=== PATIENT | male | born 1955 | race Caucasian/White ===

== ENCOUNTER 2021-05-13 18:37 | Inpatient (IN) | payer OTHER ==
[~2021-05-13] VITALS: Ht 190.5 cm; Wt 101.6 kg
[~2021-05-13 18:37] MED LIST: ALPRAZOLAM ER1 MG PO; DIAZEPAM 10 MG10 M1 PO; DILAUDID8 MG PO; HYDROCODON-ACE1 EAC5 PO; LYRICA 75 MG CA75 MG PO; PREDNISONE 20 M20 MG PO; SUBOXONE 8 MG-1 EAC3 SL
[2021-05-13 18:38] VITALS: BP 126/61
[2021-05-13 20:34] LABS: HEMATOCRIT 33.9 % (42.0-52.0); HEMOGLOBIN 10.5 gm/dL (14.0-18.0); MCH 27.8 pg (26.0-34.0); MCV 89.7 fL (80.0-100.0); RBC 3.77 mil/uL (4.50-6.00); RDW 14.2 % (10.5-14.5); WBC 10.4 thou/uL (4.0-11.0)
[2021-05-13 21:07] LABS: BUN 13 mg/dL (7-18); CALCIUM 8.8 mg/dL (8.5-10.1); CHLORIDE 102 mmol/L (98-107); CREATININE 1.1 mg/dL (0.7-1.3); GLUCOSE 186 mg/dL (74-106); POTASSIUM 4.2 mmol/L (3.5-5.1); SODIUM 144 mmol/L (136-145)
[2021-05-13 21:09] LABS: CO2 > 45 mmol/L (21-32)
[2021-05-13 21:21] LABS: ALBUMIN 3.5 g/dL (3.4-5.0); SGOT 20 U/L (15-37); SGPT 22 U/L (16-63); TOTAL BILIRUBIN 0.2 mg/dL (0.2-1.0); TOTAL PROTEIN 7.6 g/dL (6.4-8.2)
[2021-05-13 21:32] LABS: BE(vivo) 20.9 mmol/L (-2 to +3); HCO3 56.5 mmol/L (22.0-26.0); PO2 110.1 mmHg (80.0-100.0); sO2 95.3 % (92.0-98.0)
[2021-05-13 21:33] LABS: PCO2 176.6 mmHg (35.0-45.0); pH 7.123 (7.360-7.450)
[2021-05-13 22:00] VITALS: BP 145/86
[2021-05-13 23:49] LABS: BE(vivo) 24.5 mmol/L (-2 to +3); HCO3 59.6 mmol/L (22.0-26.0); PO2 68.6 mmHg (80.0-100.0); pH 7.185 (7.360-7.450); sO2 85.6 % (92.0-98.0)
[2021-05-13 23:50] LABS: PCO2 161.6 mmHg (35.0-45.0)
[2021-05-14] VITALS: BP 138/73
--- NOTE | 2021-05-14 00:54 | NUR ---
WATER HAULER ORDERED BICARB FOR PATIENT. WHEN I WENT IN THE ROOM TO ADMINISTER IT, PATIENT STARTED GAGGING. BIPAP MASK REMOVED FROM PATIENT AND BUCKET GIVEN TO PATIENT. PATIENT VOMITED INTO THE BUCKET A FEW TIMES--YELLOW FLUID. ZOFRAN GIVEN AND NO MORE EPISODES NOTED. PATIENT MORE AWAKE NOW AND WATCHING TV AT THIS TIME.
[2021-05-14 01:16] LABS: BE(vivo) 27.1 mmol/L (-2 to +3); HCO3 55.7 mmol/L (22.0-26.0); PCO2 81.4 mmHg (35.0-45.0); pH 7.453 (7.360-7.450); sO2 91.7 % (92.0-98.0)
[2021-05-14 04:00] VITALS: BP 118/61
[2021-05-14 06:34] LABS: HEMATOCRIT 33.3 % (42.0-52.0); HEMOGLOBIN 10.1 gm/dL (14.0-18.0); MCH 27.3 pg (26.0-34.0); MCHC 30.5 g/dL (28.0-37.0); MCV 89.6 fL (80.0-100.0); RBC 3.72 mil/uL (4.50-6.00); RDW 13.8 % (10.5-14.5); WBC 11.2 thou/uL (4.0-11.0)
[2021-05-14 06:57] LABS: CALCIUM 9.2 mg/dL (8.5-10.1); CREATININE 1.2 mg/dL (0.7-1.3); POTASSIUM 3.4 mmol/L (3.5-5.1)
[2021-05-14 08:00] VITALS: BP 147/78
[2021-05-14 10:20] LABS: BE(vivo) 19.3 mmol/L (-2 to +3); HCO3 42.7 mmol/L (22.0-26.0); PCO2 43.5 mmHg (35.0-45.0); PO2 57.3 mmHg (80.0-100.0); sO2 93.7 % (92.0-98.0)
--- NOTE | 2021-05-14 11:30 | EKG ---
[address] [place] [address] ELECTROCARDIOGRAM REPORT Name: KIRA DUMAS Room #: 170-21 ADM IN M.R.#: [id number] Admission: 05/13/21 Attend Phys: Desmond Worley MD Discharge: Date of : 59 Report #: [id number] [facility] ED Test Date: 2021-05-13 Test Time: 19:16:49 Pat Name: KIRA DUMAS Department: Room: 170 Gender: M Novelty Worker: LEIGH GONSALEZ : 1955 Requested By: Victorina Bergman Order Number: [id number] MD: Holger Clifford Measurements Intervals [place] Rate: 113 P: 60 [place]: 166 QRS: 32 QRSD: 95 T: 43 QT: 327 QTc: 449 Interpretive Statements Sinus tachycardia Poor R wave progression Baseline wander in lead(s) V1,V2 Compared to ECG 05/03/2013 10:07:39 Atrial premature complex(es) no longer present Electronically Signed On 05-14-2021 11:30:42 RETAIL TEAM MEMBER by Holger Clifford [email or web address] <ELECTRONICALLY SIGNED> By: Holger Clifford MD, [facility] 05/14/21 1130 15 15 Holger Clifford MD, [facility] /EPI
[2021-05-14 12:00] VITALS: BP 120/69
[2021-05-14 14:30] VITALS: BP 119/83
[2021-05-14 20:05] VITALS: BP 138/80
--- NOTE | 2021-05-15 03:56 | NUR ---
RECEIVED PATIENT AT 1900H.ON BIPAP AT 50% FIO2 GRADUALLY WEANED BY RT ON DUTY DOWN TO 30% FIO2, SATURATING WELL.ASSESSMENT DONE CHARTED.MEDS GIVEN PER JUL.ALL NEEDS ATTENDED.TO CONTINOUSLY MONITOR.
[2021-05-15 04:25] VITALS: BP 129/69
[2021-05-15 04:26] LABS: CREATININE 1.4 mg/dL (0.7-1.3); HEMATOCRIT 33.3 % (42.0-52.0); HEMOGLOBIN 10.3 gm/dL (14.0-18.0); MCH 27.3 pg (26.0-34.0); MCHC 30.9 g/dL (28.0-37.0); MCV 88.5 fL (80.0-100.0); POTASSIUM 3.2 mmol/L (3.5-5.1); RBC 3.77 mil/uL (4.50-6.00); RDW 14.3 % (10.5-14.5); WBC 12.1 thou/uL (4.0-11.0)
[2021-05-15 07:30] VITALS: BP 130/76
[2021-05-15 11:30] VITALS: BP 132/65
[2021-05-15] MEDS ORDERED: POTASSIUM CHLO20 ME2 PO (13:06)
[2021-05-15] MEDS ORDERED: FUROSEMIDE 80 M80 M1 PO (13:06)
[2021-05-15] MEDS ORDERED: XARELTO20 MG PO (13:06)
[2021-05-15] MEDS ORDERED: METOPROLOL SUCC50 MG PO (13:07)
[2021-05-15] MEDS ORDERED: REMERON 30 MG T30 M1 PO (13:07)
[2021-05-15] MEDS ORDERED: TRAZODONE HCL100 MG PO (13:08)
[2021-05-15] MEDS ORDERED: VENTOLIN HFA 1818 GM INH (13:09)
[2021-05-15] MEDS ORDERED: BASAGLAR K100 UNIT/1 SUBQ (13:10)
[2021-05-15 16:00] VITALS: BP 123/73
[2021-05-15 20:15] VITALS: BP 128/65
[2021-05-16 04:09] VITALS: BP 122/73
[2021-05-16 04:24] LABS: HEMOGLOBIN 9.6 gm/dL (14.0-18.0); MCV 87.1 fL (80.0-100.0); RBC 3.57 mil/uL (4.50-6.00); RDW 14.6 % (10.5-14.5); WBC 11.9 thou/uL (4.0-11.0)
[2021-05-16 04:41] LABS: CALCIUM 8.5 mg/dL (8.5-10.1); CREATININE 1.2 mg/dL (0.7-1.3)
[2021-05-16 04:44] LABS: POTASSIUM 2.9 mmol/L (3.5-5.1)
[2021-05-16 07:15] VITALS: BP 125/67
[2021-05-16 12:00] VITALS: BP 118/65
[2021-05-16 16:00] VITALS: BP 126/71
[2021-05-16 19:42] VITALS: BP 125/68
--- NOTE | 2021-05-16 21:02 | NUR ---
UPON INITIAL ASSESSMENT PATIENT OXYGEN SATURATION AT 89-90% ON 14 LITERS NASAL CANNULA. NURSE PRESSED UPON PATIENT THE NEED TO KEEP OXYGEN SATURATIONS >92% AND ATTEMPTED TO PLACE BIPAP ON PATIENT TO WHICH HE REFUSED. PATIENT STATES IT "HURTS MY NOSE TOO MUCH." NURSE HAD RT GIVE PT SCHEDULED BREATHING TX AND KICKED PATIENT UP TO 15 LITERS ON NASAL CANNULA WITH LIMITED IMPROVEMENT OF SATS IN 92-93% RANGE. PATIENT STATES WE CAN PUT HIM ON BIPAP "AROUND 10 O'CLOCK". PATIENT IS FULLY ALERT AND ORIENTED.
[2021-05-17 03:48] VITALS: BP 137/81
[2021-05-17 04:18] LABS: HEMATOCRIT 32.1 % (42.0-52.0); HEMOGLOBIN 10.1 gm/dL (14.0-18.0); MCH 27.4 pg (26.0-34.0); MCHC 31.4 g/dL (28.0-37.0); MCV 87.3 fL (80.0-100.0); RBC 3.68 mil/uL (4.50-6.00); RDW 14.6 % (10.5-14.5); WBC 12.8 thou/uL (4.0-11.0)
[2021-05-17 04:21] LABS: CALCIUM 8.2 mg/dL (8.5-10.1); CREATININE 1.1 mg/dL (0.7-1.3); POTASSIUM 3.6 mmol/L (3.5-5.1)
[2021-05-17 07:40] VITALS: BP 134/69
[2021-05-17 12:40] VITALS: BP 149/73
[2021-05-17 12:53] LABS: BE(vivo) 5.6 mmol/L (-2 to +3); HCO3 35.1 mmol/L (22.0-26.0); PCO2 79.1 mmHg (35.0-45.0); PO2 175.6 mmHg (80.0-100.0); pH 7.265 (7.360-7.450); sO2 98.9 % (92.0-98.0)
[2021-05-17 15:25] LABS: BE(vivo) 9.2 mmol/L (-2 to +3); HCO3 37.8 mmol/L (22.0-26.0); PO2 70.6 mmHg (80.0-100.0); sO2 92.3 % (92.0-98.0)
[2021-05-17 15:30] LABS: PCO2 73.6 mmHg (35.0-45.0); pH 7.329 (7.360-7.450)
--- NOTE | 2021-05-17 15:47 | NUR ---
DURING LUNCH THE PATIENT CHOKED ON A PIECE OF FOOD. I HEARD THE PATIENT CHOKING AND WENT INTO THE ROOM TO ASSESS THE SITUATION. HE WAS HAVING RESPIRATORY ISSUES. OXYGEN SATURATION WAS IN THE LOW 80'S AND DROPING. A COUPLE OF HARD BACK SLAPS WERE GIVEN TO THE PATIENT AND HE WAS ABLE TO COUGH UP THE PIECE OF FOOD, HE WAS ALSO PLACED ON BIPAP. THAT PATIENT HAS AN O2 OF 55% ON THE PULSE OX AND HAD BLUE LIPS BY THE TIME THE BIPAP WAS ABLE TO PLACED. DR WHITE WAS ROUNDING AT TIME OF INCIDENT, DR. ODOM AND DR. GUTIERREZ WAS NOTIFIED. ORDERS RECIEVED AND PLACED.
--- NOTE | 2021-05-17 16:06 | NUR ---
CM DID NOT SEE PT TODAY DUE TO DECREASE IN RESP STATUS. PT NOW ON BIPAP. CM WILL CONTINUE TO FOLLOW FOR DC NEEDS ONCE MEDICALLY STABLE.
[2021-05-17 16:50] VITALS: BP 129/66
[2021-05-17 20:14] VITALS: BP 136/81
[2021-05-18 03:27] LABS: HEMATOCRIT 34.6 % (42.0-52.0); HEMOGLOBIN 10.9 gm/dL (14.0-18.0); MCH 27.9 pg (26.0-34.0); MCHC 31.6 g/dL (28.0-37.0); MCV 88.3 fL (80.0-100.0); RBC 3.91 mil/uL (4.50-6.00); RDW 14.9 % (10.5-14.5); WBC 13.6 thou/uL (4.0-11.0)
[2021-05-18 03:56] LABS: CALCIUM 8.4 mg/dL (8.5-10.1); CREATININE 1.1 mg/dL (0.7-1.3); POTASSIUM 4.2 mmol/L (3.5-5.1)
[2021-05-18 05:00] VITALS: BP 152/95
--- NOTE | 2021-05-18 06:11 | HC ---
[facility] [place] [address] [place] [address] CONSULTATION Name: KIRA DUMAS JR Room #: 204-P ADM IN M.R.#: [id number] Admission: 05/13/21 Attend Phys: Luke Benitez MD Discharge: Date of : 59 Report #: [id number] THIS REPORT FOR: cc: Bradford Arriaza MD, David R. MD Deardorff, Valerie A. MD ~ DATE OF SERVICE: 05/14/2021 ORTHOPEDIC CONSULT NOTE REASON FOR CONSULTATION: Right tib-fib fracture. HISTORY OF PRESENT ILLNESS: The patient is a 65-year-old male with multiple medical issues who fell yesterday while ambulating with his walker. The history is obtained from the patient's medical record due to the patient's sedation. He fell twice yesterday. Reported pain in the right lower extremity, was diagnosed with a right distal tibia and midshaft fibula fracture. He said he was unable to bear weight. REVIEW OF SYSTEMS: GENERAL: Denied loss of consciousness. MUSCULOSKELETAL: See HPI. PAST MEDICAL HISTORY: Significant for COPD, obstructive sleep apnea, suicidal ideation per the chart, chronic back pain, hepatitis, atrial fibrillation. PAST SURGICAL HISTORY: Spinal fusion and liver biopsy. SOCIAL HISTORY: Smokes cigarettes daily. Alcohol use is none. Ambulates with a walker. ALLERGIES: No known drug allergies . REPORTED HOME MEDICATIONS: Include Suboxone and pregabalin as well as prednisone. LABORATORY DATA: Laboratory studies done on 05/14/2021 show white blood cell count 11.2, hemoglobin 10.1, hematocrit 33, platelet count 262. Arterial blood gas shows elevated pCO2. Chemistry is grossly normal. PHYSICAL EXAMINATION: GENERAL: The patient has a CPAP machine on. He is sleepy, will not arouse to stimulation, but is breathing and appears to be resting comfortably. He is a well-developed, well-nourished male in no acute distress. He is lying in a hospital bed. MOST RECENT VITAL SIGNS: Show temperature of 37.8, heart rate 89, respiratory [facility] [address] [place] [address] CONSULTATION Name: KIRA DUMAS Room #: 204-P [facility] IN ..#: [id number] Admission: 05/13/21 Attend Phys: Luke Benitez MD Discharge: Date of : 59 Report #: [id number] rate 18, blood pressure 118/61, pulse oximetry is 94%. EXTREMITIES: Examination of his bilateral upper extremity, again the exam is significantly limited due to the patient's sedation and inability to wake. The skin is clean, dry and intact on both upper extremities. Unable to move them gently without any pain. He has brisk capillary refill. There are no deformities. Right lower extremity, his leg is in a well-padded posterior and sugar tong splint. Unable to wiggle his toes without significant difficulty. He has brisk capillary refill. There is no pain with range of motion of the hip or knee. Left lower extremity, skin is clean, dry and intact. I am able to range his legs gently without pain. RADIOGRAPHS: AP and lateral of the right tib-fib shows a midshaft fibula fracture with a moderate amount of comminution, distal tibia fracture that extends to 2 cm proximal to the joint line. This is a short oblique fracture. Foot x-rays do not show any acute abnormality. IMPRESSION AND PLAN: Right distal tibia and midshaft fibula fracture in a patient with multiple medical issues and difficult to awaken today, most likely due to his hypercapnia. I advised continued ice and elevation. We will discuss with my partner, Dr. Jeffrey Santo who is otolaryngology surgeon this weekend and he will develop a plan. Thank you very much for allowing me to participate in the care of this patient. Sincerely, <ELECTRONICALLY SIGNED> By: Anabel Thomas MD 05/18/21 0611 [id number] 0621 Anabel Thomas MD /nt
[2021-05-18 08:00] VITALS: BP 122/88
[2021-05-18 12:00] VITALS: BP 148/78
[2021-05-18 16:00] VITALS: BP 162/87
--- NOTE | 2021-05-18 17:26 | NUR ---
PT/OT EVALS IN PROGRESS. ANTICIPATED PTS NONSURGICAL FX WILL BE NWB FOR 6-8 WEEKS AND HOPEFULLING ABLE TO CAST HIS LOWER EXT. HERE THROUGHOUT THE DAY. 5N IS FOLLOWING. AWAITING FURTHER INPUT FROM THE TEAM TO DETERMINE IF SNF OR WILL BE BEST OPTION FOR PT. PT CONTINUES ON 50% O2. CM WILL CONTINUE TO FOLLOW.
[2021-05-18 20:15] VITALS: BP 146/80
--- NOTE | 2021-05-18 21:45 | NUR ---
patient refused iv pain meds due to his nausea and throwing up.
[2021-05-19 04:30] VITALS: BP 134/73
[2021-05-19 07:27] VITALS: BP 136/79
[2021-05-19 11:05] VITALS: BP 122/60
[2021-05-19 15:15] VITALS: BP 124/66
[2021-05-19 19:31] VITALS: BP 110/57
--- NOTE | 2021-05-20 03:59 | NUR ---
RECEIVED PATIENT AT 1900H.PATIENT IS ALERT AND ORIENTED X4.ASSESSMENT DONE CHARTED.MEDS GIVEN PER JUL.PAIN MANAGEMENT DONE.ALL NEEDS ATTENDED.TO CONTINOUSLY MONITOR.
[2021-05-20 04:24] VITALS: BP 119/66
[2021-05-20 07:39] VITALS: BP 133/65
[2021-05-20 11:13] VITALS: BP 115/70
--- NOTE | 2021-05-20 11:55 | NUR ---
Nutrition: pt admitted with acute respiratory failure, right tib/fib fracture and ankle fracture. PMH: COPD, hepatitis, back surgery. pt had required bipap but currently on Optiflo. Plan nonoperative approach due to high risk surgical candidate due to O2 needs. BG 200-261. On SSI, glargine. Steroids likely aggravating BG. Pt eating fairly well, 50-100% of meals on Carb Controlled diet. Voiced understanding of diet and stable weights past year although did lose some weight at time of DM dx over a year ago. Alerted pt of alternative menu options. Consider low nutrition risk.
--- NOTE | 2021-05-20 12:37 | EKG ---
[address] [address] ELECTROCARDIOGRAM REPORT Name: KIRA DUMAS Room #: 204-[facility] IN ..#: [id number] Admission: 05/13/21 Attend Phys: Luke Benitez MD Discharge: Date of : 59 Report #: [id number] [facility] Test Date: 2021-05-20 Test Time: 09:36:57 Pat Name: KIRA DUMAS Department: Room: 204 P Gender: M Kiln Firer: LOURDES : 1955 Requested By: Luke Benitez Order Number: [id number] MD: Isaak Rodriguez Measurements Intervals [place] Rate: 120 P: 118 [place]: 162 QRS: 54 QRSD: 96 T: 60 QT: 318 QTc: 450 Interpretive Statements Sinus tachycardia with irregular rate Compared to ECG 05/13/2021 19:16:49 Poor R-wave progression no longer present Electronically Signed On 05-20-2021 12:37:11 COMMUNITY ARTIST by Isaak Rodriguez [email or web address] <ELECTRONICALLY SIGNED> By: Isaak Rodriguez MD, [facility] 05/20/21 1237 5 5 Isaak Rodriguez MD, FACC /EPI
[2021-05-20 12:39] LABS: BASOPHILS 0.1 % (0.0-2.0); HEMATOCRIT 40.3 % (42.0-52.0); HEMOGLOBIN 12.7 gm/dL (14.0-18.0); LYMPHOCYTES 4.5 % (24.0-44.0); MCH 27.6 pg (26.0-34.0); MCHC 31.5 g/dL (28.0-37.0); MCV 87.7 fL (80.0-100.0); MONOCYTES 7.2 % (1.0-8.0); PLATELET COUNT 360 thou/uL (150-400); POLYS 88.2 % (36.0-66.0); RBC 4.59 mil/uL (4.50-6.00); RDW 15.2 % (10.5-14.5); WBC 18.1 thou/uL (4.0-11.0)
[2021-05-20 12:46] LABS: CALCIUM 8.4 mg/dL (8.5-10.1); CREATININE 1.2 mg/dL (0.7-1.3); POTASSIUM 4.1 mmol/L (3.5-5.1)
[2021-05-20 15:03] VITALS: BP 119/79
--- NOTE | 2021-05-20 16:24 | NUR ---
Assumed care of pt this AM. Pt is A&O x4. Received pt on Bipap, but switched to Optiflow @ 45L this AM for day. Pt w/ uncontrolled Afib this AM. Cardiology consult placed per provider & orders carried out. Pt reports pain in RLE 8-10/10 throughout day. Pt reports it has been uncontrolled. Pain medication adjustments made per provider & pt reports better pain control. Fall precautions in place.
--- NOTE | 2021-05-20 16:36 | NUR ---
CM REVIEWED PT CHART. CALLED PTS TO ASSIST WITH DC PLANNING AND REVIEW SNF OPTIONS. UNABLE TO REACH AND LM. CM WILL CONTINUE TO FOLLOW.
[2021-05-20 19:41] VITALS: BP 138/70
[2021-05-21 03:25] LABS: HEMATOCRIT 34.5 % (42.0-52.0); HEMOGLOBIN 11.1 gm/dL (14.0-18.0); MCV 87.5 fL (80.0-100.0); RBC 3.95 mil/uL (4.50-6.00); RDW 14.6 % (10.5-14.5); WBC 17.3 thou/uL (4.0-11.0)
[2021-05-21 04:30] VITALS: BP 117/82
[2021-05-21 04:51] LABS: CALCIUM 7.8 mg/dL (8.5-10.1); CREATININE 1.1 mg/dL (0.7-1.3); POTASSIUM 4.1 mmol/L (3.5-5.1)
--- NOTE | 2021-05-21 04:53 | NUR ---
ASSESSSMENT COMPLETED. PT IS ON THE BIPAP@NOC 6L. LS ARE DIMINISHED, NO S/SX OF DISTRESS. MAIN PROBLEM IS RLE PAIN, ELEVATED ON PILLOW AND ICE APPLIED. SPLINT IN PLACE.NORCO GIVEN FOR PAIN-PLAN FOR CASTING TODAY.AFIB CONTROLLED ON TELEMETRY.AFEBRILE.NO COUGH NOTED. ON CONTINUOUS PULSE OX AND SITTING ON 95%.
[2021-05-21 07:40] VITALS: BP 103/68
--- NOTE | 2021-05-21 09:33 | NUR ---
Assumed care of pt this AM. Pt is A&O x4, on optiflow @ 45L, Afib on the monitor. Pt c/o pain in the RLE, PRN pain medication given as ordered. Plan for echo & possible casting of RLE today? High fall precautions in place. Pt calls appropriately.
--- NOTE | 2021-05-21 10:38 | 2DMMODE ---
[facility] [place] [address] 2 D/M-MODE ECHOCARDIOGRAM Name: ALESIAKIRA MARYLINVALERI Room #: 204-P [facility] IN .#: [id number] Admission: 05/13/21 Attend Phys: Luek Benitez MD Discharge: Date of : 59 Report #: [id number] THIS REPORT FOR: cc: Bradford Arriaza MD, David R. MD Santiago, Patrick MD [facility] ~ APPROVED REPORT Study performed: 05/21/2021 08:55:26 EXAM: Comprehensive 2D, Doppler, and color-flow Echocardiogram Patient Location: In-Patient Room #: 204 Status: routine BSA: 2.30 HR: 71 bpm BP: 117/82 mmHg Rhythm: Atrial Fibrillation Other Information Study Quality: Fair Technically limited study due to body habitus, inability to position patient. Risk Factors: Cardiac Risk Factors: Smoking Indications Hypotension COPD Atrial Fibrillation 2D Dimensions RVDd: 39.36 mm IVSd: 10.70 (7-11mm) LVOT Diam: 20.13 (18-24mm) LVDd: 42.91 mm PWd: 10.91 (7-11mm) Ascending Ao: 33.52 (22-36mm) LVDs: 34.01 (25-40mm) Aortic Root: 30.90 mm Volumes Left Atrial Volume (Systole) Single Plane 4CH: 106.69 mL Single Plane 2CH: 54.59 mL Biplane LA Volume: 88.00 mL LA ESV Index: 38.00 mL/m2 [facility] [address] [place] [address] 2 D/M-MODE ECHOCARDIOGRAM Name: KIRA DUMAS Room #: 204-P [facility] IN ..#: [id number] Admission: 05/13/21 Attend Phys: Luke Benitez MD Discharge: Date of : 59 Report #: [id number] Aortic Valve AoV Peak Suresh.: 1.10 m/s AO Peak Gr.: 5.24 mmHg LVOT Max P.40 mmHg LVOT Max V: 0.92 m/s VERN Vmax: 2.67 cm2 Left Ventricle The left ventricle is normal size. There is normal LV segmental wall motion. There is normal left ventricular wall thickness. Left ventricular systolic function is mildly decreased. LVEF is 40-45%. This study is not technically sufficient to allow evaluation of the LV diastolic function due to atrial fibrillation. Right Ventricle The right ventricle is normal size. The right ventricular systolic function is normal. Atria Left atrium is mildly dilated. The right atrium size is normal. Aortic Valve The aortic valve is not well visualized. No aortic regurgitation is present. There is no aortic valvular stenosis. Mitral Valve The mitral valve is normal in structure. There is no mitral valve regurgitation noted. No evidence of mitral valve stenosis. Tricuspid Valve The tricuspid valve is normal in structure. Unable to assess PA pressure. Pulmonic Valve Pulmonic valve is not well visualized. There is no pulmonic valvular regurgitation. Great Vessels The aortic root is normal in size. IVC is normal in size and collapses >50% with inspiration. Pericardium Trace pericardial effusion. There is no pleural effusion. [facility] [address] [place] [address] 2 D/M-MODE ECHOCARDIOGRAM Name: KIRA DUMAS Room #: 204-P [facility] IN [facility]#: [id number] Admission: 05/13/21 Attend Phys: Luke Benitez MD Discharge: Date of : 59 Report #: [id number] <Conclusion> Technically a difficult study Normal left ventricle size/wall thickness Global hypokinesis ejection fraction 40-45% Normal right ventricle size/function Mild left atrial enlargement Normal aortic/mitral valve structure and function No tricuspid valve insufficiency Trace pericardial effusion Normal aortic root size. <ELECTRONICALLY SIGNED> By: Isaak Rodriguez MD, FACC 05/21/21 1037 1037 1037 Isaak Rodriguez MD, FACC /INF
[2021-05-21 11:15] VITALS: BP 123/57
[2021-05-21 15:07] VITALS: BP 106/71
--- NOTE | 2021-05-21 16:03 | NUR ---
CM PLACED CALL TO PTS JASMIN [phone] AND DAUGHTER ANNIKA [phone] AND CONTINUE UNABLE TO REACH. SNF LIST GIVEN TO PTS AND AWAITING CHOICE FOR DC PLANNING. PER PHYSICIAN PT WILL NOT BE MEDICALLY STABLE TO DISCHARGE FOR A FEW DAYS. CM WILL CONTINUE TO FOLLOW.
[2021-05-21 20:09] VITALS: BP 110/70
--- NOTE | 2021-05-22 03:30 | NUR ---
RECEIVED CARE OF THIS PAITENT AT 1900. PATIENT ALERT AND ORIENTED X4. REMAINS ON BEDREST D/T FX LEG AND FOOT ON THE R LOWERR EXT. O2 PER BIPAP AT HS. R LEG IN CAST UP ON PILLOWS. ACCUCHECK WAS 271, RECEIVED 12 UNITS LISPRO INSULIN. IS AFIB ON TELE. IS NON-WEIGHT BEARINGON R LOWER EXT. C/O PAIN. MED GIVEN. SLEPT MOST OF NIGHT.
[2021-05-22 04:11] VITALS: BP 111/65
[2021-05-22 07:46] VITALS: BP 127/76
[2021-05-22 11:05] VITALS: BP 105/57
[2021-05-22 15:26] VITALS: BP 111/60
--- NOTE | 2021-05-22 16:43 | NUR ---
ASSESSMENT CHARTED - MEDS PER ALEXIS - SHERRY DIET AND FLUIDS. GIVEN HYDRCODONE X 3 DOSED FOR CO'S OF PAIN - PT CALLS FOR PAIN MEDS EVERY 4 HOURS. CAST TO R LEG PT STATES IS LOOSE - HE CAN FEEL HIS BONES CLICKING INSIDE OF IT - DR HEATH PAGED AND INFORMED HE STATED THIS WAS OKAY. PT HAS BEEN RESTING IN BED THIS SHIFT -REMAINS ON THE OPTIFLOW - SHORT OF BREATH WITH MIN EXERTION. ACCUCHECKS CHARTED - COVERED PER SSI. NO CO'S AT THE PRESENT TIME.
[2021-05-22 19:38] VITALS: BP 114/73
[2021-05-23 03:30] VITALS: BP 100/67
[2021-05-23 07:13] VITALS: BP 113/73
[2021-05-23 11:00] VITALS: BP 101/49
[2021-05-23 15:20] VITALS: BP 117/85
--- NOTE | 2021-05-23 18:15 | NUR ---
ASSESSMENT CHARTED - MEDS PER MAR - PT REQUESTING PAIN MEDS EVERY 4 HOURS - CAN BE SLEEPING AND WAKES AND ASKS FOR THEM. SHERRY DIET AND FLUIDS. NO CO'S OF NAUSEA. GIVEN MIRILAX THIS AM FOR NO BM - HAD NO RESULTS WILL REQUEST THAT IT IS REPEATED THIS EVENING. HAS SPENT THE DAY RESTING IN BED. ACCUCHECKS CHARTED - COVERED PER SSI. ANKLE AND LEG XRAY COMPLETED THIS AM. INTO VISIT THIS EVENNING. NO CO'S AT THE PRESENT TIME.
[2021-05-23 19:39] VITALS: BP 106/58
[2021-05-24 03:46] VITALS: BP 121/63
[2021-05-24 07:45] VITALS: BP 118/74
[2021-05-24 09:48] LABS: CALCIUM 7.8 mg/dL (8.5-10.1); CREATININE 1.1 mg/dL (0.7-1.3); POTASSIUM 4.5 mmol/L (3.5-5.1)
[2021-05-24 11:40] VITALS: BP 113/58
--- NOTE | 2021-05-24 15:07 | NUR ---
TOOK OVER CARE OF THIS PATIENT AT O700. PT RESTING IN BED AT THIS TIME. ASSESSMENTS CHARTED; VSS; APPEARS IN NO DISTRESS. PT COMPLAINT OF PAIN IN RLE; ADMIN PRN PAIN MEDICATION. PT DENIES ANY OTHER NEEDS AT THIS TIME. WILL CONTINUE TO MONITOR. FALL PRECAUTIONS IN PLACE, CALL LIGHT WITHIN REACH.
--- NOTE | 2021-05-24 15:41 | NUR ---
CM MET WITH PT THIS DAY. PT REMAINS ON 9L HIGH FLOW O2. PTS BASELINE IS 5L/NC. THERAPY RECOMMENDED SNF ONCE MEDICALLY STABLE TO DC. PT INDICATED HIS FIRST CHOICE FOR SNF SERVICES IS [facility]. REFERRAL SENT. ALSO SENT REFERRAL TO [facility]. AWAITING ACCEPTANCE AT THIS TIME. CM WILL CONTINUE TO FOLLOW.
[2021-05-24 15:55] VITALS: BP 119/76
[2021-05-24 20:09] VITALS: BP 111/61
[2021-05-25 04:28] VITALS: BP 122/77
[2021-05-25 08:00] VITALS: BP 132/72
--- NOTE | 2021-05-25 10:09 | NUR ---
TOOK OVER PATIENT AT 0700; PT RESTING IN BED AT THIS TIME. PT DENIES ANY PAIN AT THIS TIME. PT WEARING 8 L NC VIA HFNC. SPOKE WITH CM REGARDING PATIENT'S CASE; REFERRAL TO FACILITY MADE BUT PATIENT STATES HE WANTS TO GO HOME. PT BECOMES SOA WITH EXERTION. FALL PRECAUTIONS IN PLACE AND CALL LIGHT WITHIN REACH. DENIES ANY OTHER NEEDS AT THIS TIME.
[2021-05-25 11:15] VITALS: BP 122/78
--- NOTE | 2021-05-25 16:07 | NUR ---
KALPESH SPOKE WITH FRANKIE AT [facility]. NO BEDS AVAILABLE AT THIS TIME FOR SNF SERVICES. KALPESH ALSO SPOKE TO [facility], PTS SECOND CHOICE FOR SNF. SPOKE TO BOB. HE REPORTS THEY CAN ALSO ACCEPT AND MAY HAVE A BED AVAILABLE TOMORROW. HE WILL LET THIS CM KNOW AND CM WILL F/U IN AM.
[2021-05-25 16:10] VITALS: BP 128/82
[2021-05-25 19:29] VITALS: BP 146/82
[2021-05-25 20:00] VITALS: BP 114/65
--- NOTE | 2021-05-26 03:40 | NUR ---
RECEIVED PATIENT AT 1900H.ASSESSMENT DONE CHARTED.MEDS GIVEN PER JUL.PAIN MANAGEMENT DONE.ALL NEEDS ATTENDED.TO CONTINOUSLY MONITOR.
[2021-05-26 03:44] VITALS: BP 122/68
[2021-05-26 07:40] VITALS: BP 119/71
[2021-05-26 11:40] VITALS: BP 98/71
--- NOTE | 2021-05-26 14:31 | NUR ---
CM FOLLOWING FOR DC PLANNING. CM SPOKE TO FRANKIE AND UNFORTUNETLY [facility] DOES NOT HAVE A BED AVAILABLE UNTIL MONDAY. CM ALSO SPOKE TO BUTCH WITH [facility]. HE REPORTS PT ACCEPTED ALTHOUGH NO BED AVAILABLE EITHER. HE REPORTS HE WILL KEEP PT ON HIS LIST OF ADMISSIONS HOWEVER, IT DEPENDS OF STAFFING. CM MET WITH PT THIS DAY. HE REPORTS BOB WITH [facility] CAME TO SEE HIM TODAY TO GIVE HIM A BROCHURE OF FACILITY. PT REPORTS HE APPRECIATED THAT AND PREFERS TO GO TO THIS FACILITY HIS FIRST CHOICE. PT REPORTS DISCHARGING HOME MAY NOT BE OPTION PTS WORKS AND IS NOT HOME DURING THE DAY. CM WILL CONTINUE TO FOLLOW FOR DC ONCE PT MEDICALLY STABLE TO DC.
[2021-05-26 15:20] VITALS: BP 127/72
--- NOTE | 2021-05-26 17:36 | NUR ---
PATIENT HAD AN UNEVENTFUL SHIFT. ONLY COMPLAINTS WAS PAIN IN RIGHT LEG SECONDARY TO FRACTURE. DECENT URINE OUTPUT, AND 1 LARGE BOWEL MOVEMENT. PATIENT REMAINED IN BED THROUGHOUT SHIFT ABLE TO TURN SELF. PT HAD A GOOD APPETITE AND CONSUMED THE MAJORITY OF MEALS AND SNACKS THROUGHOUT THE DAY.
[2021-05-26 19:25] VITALS: BP 121/58
[2021-05-27 03:31] VITALS: BP 118/70
--- NOTE | 2021-05-27 04:27 | NUR ---
RECEIEVED PATIENT AT 1900H.ASSESSMENT DONE CHARTED.MEDS GIVEN PER Jul.HAD COMPLAINTS OF RIGHT FOOR AND BACK PAIN, PRN PAIN MEDS GIVEN.ALL NEEDS ATTENDED.TO CONTINOUSLY MONITOR.
[2021-05-27 07:15] VITALS: BP 93/66
[2021-05-27] MEDS ORDERED: CARDIZEM CD120 MG PO (10:26)
[2021-05-27] MEDS ORDERED: PREDNISONE 20 M20 M1 PO (10:26)
[2021-05-27] MEDS ORDERED: IPRAT-ALBUT 0.5-3 ML INH (10:26)
[2021-05-27] MEDS ORDERED: BASAGLAR K100 UNIT/1 SUBQ (10:26)
[2021-05-27] MEDS ORDERED: PROBIOTIC1 EAC1 PO (10:26)
[2021-05-27] MEDS ORDERED: PEPCID20 MG PO (10:26)
[2021-05-27] MEDS ORDERED: NORCO7.5 PO (10:26)
[2021-05-27] MEDS ORDERED: CEFDINIR300 MG PO (10:26)
[2021-05-27] MEDS ORDERED: PULMICORT0.5 MG/21 INH (10:26)
[2021-05-27 10:47] LABS: HEMATOCRIT 38.5 % (42.0-52.0); HEMOGLOBIN 11.7 gm/dL (14.0-18.0); MCH 27.1 pg (26.0-34.0); MCHC 30.5 g/dL (28.0-37.0); RBC 4.32 mil/uL (4.50-6.00); RDW 15.7 % (10.5-14.5); WBC 13.9 thou/uL (4.0-11.0)
[2021-05-27 11:18] LABS: CREATININE 1.2 mg/dL (0.7-1.3); MAGNESIUM 1.9 mg/dL (1.8-2.4); POTASSIUM 3.9 mmol/L (3.5-5.1)
[2021-05-27 11:30] VITALS: BP 113/57
--- NOTE | 2021-05-27 12:47 | NUR ---
Nutrition followup: pt continues on CCU unit, acute respiratory failure/COPD, on Optiflow and right tib/fib/ankle fracture. Nonsurgical approach. Pt continues to eat very well, 75-100% of meals on Carb controlled diet. BG 136-324. BG remains aggravated likely with steroids. On SSI, glargine, lasix. Weight down 4# from admit, likely due to diuresis. 05/25 BM. Planned D/C soon as facility is found. Low nutrition risk.
--- NOTE | 2021-05-27 14:20 | NUR ---
KALPESH SPOKE TO BOB ZUNIGA AT [facility]. PT NOT MEDICALLY STABLE TO DC THIS DAY HAS NOT BEEN CLEARED BY CARDIOLOGY AT THIS TIME. BOB INDICATED [facility] WILL CONSIDER PT HIGH PRIORITY FOR BED AVAILABILITY TOMORROW ALTHOUGH CANNOT PROMISE. LM FOR PTS . KALPESH SPOKE TO PT AT BEDSIDE. NO FUTHER CM INTERVENTIONS NEEDED AT THIS TIME.
[2021-05-27 16:00] VITALS: BP 114/72
--- NOTE | 2021-05-27 17:04 | NUR ---
PATIENT WORKED WITH PHYSICAL THERAPY TODAY, WHILE PHYSICAL THERAPY WAS WORKING WITH THE PATIENT HIS HEART RATE WENT UP TO 180 BPM. RECOVERED QUICKLY AFTER BEING PLACED IN BED. PATIENT STATED HIS ONLY COMPLAINT DURING THE HIGH HEART RATE WAS PAIN IN HIS RIGHT LEG. PATIENT HAS ASKED FOR PAIN CONTROL EVERY FOUR HOURS, PAIN CONTROL GIVING SEE MAR. PATIENT DENIED ANY OTHER COMPLAINTS TODAY. NO BM TO THIS SHIFT. DECENT URINE OUTPUT.
[2021-05-27 19:59] VITALS: BP 120/70
[2021-05-28 03:25] VITALS: BP 124/60
--- NOTE | 2021-05-28 03:56 | NUR ---
SLEPT PART OF SHIFT. PAIN MEDICATIONS GIVEN NEEDED. DENIES OTHER COMPLAINTS. PROGRESSING SLOWLY TOWARDS DISCHARGE.
[2021-05-28 07:15] VITALS: BP 109/59
--- NOTE | 2021-05-28 09:09 | NUR ---
SPOKE TO CARDIOLOGY MILKING MACHINE OPERATOR WHO INDICATED WOULD COMMUNICATE WITH DR MINAYA IF PT IS MEDCIALLY ABLE TO DC FROM CARDIOLOGY STANDPOINT. PT CONTINUED WITH SOME TACHYCARDIA OVERNIGHT. CARDIZEM WAS INCREASED FROM 120MG TO 180MG. CM WILL CONTINUE TO FOLLOW FOR DC NEEDS AND PLANNING.
[2021-05-28 12:00] VITALS: BP 96/66
[2021-05-28] MEDS ORDERED: HUMALOG100 UNIT/1 SUBQ (12:28)
[2021-05-28] MEDS ORDERED: LASIX 40 MG TAB40 M1 PO (12:28)
[2021-05-28] MEDS ORDERED: METOPROLOL SUCC50 MG PO (12:28)
[2021-05-28] MEDS ORDERED: DILTIAZEM 24HR180 M1 PO (12:28)
[2021-05-28] MEDS ORDERED: PREDNISONE 20 M20 M1 PO (12:28)
--- NOTE | 2021-05-28 14:12 | NUR ---
ASSUMED CARE OF PATIENT AT 0700. PATIENT REMAINS ON 4LNC, NO RESPIRATORY DISTRESS NOTED. PATIENT TO DC TO [facility]. IV AND TELE REMOVED AND BELONGINGS GATHERED. PATIENT PROGRESSED TOWARD POC.
--- NOTE | 2021-05-28 14:23 | NUR ---
REPORT CALLED TO [facility]
== END 2021-05-28 15:57 | DRG 562 ==
LOC: ER 18:37 → 2N 22:41 → EROBS 22:41 → 2N 05-14 14:10
PROVIDERS: Hospitalist; Internal Medicine; Internal Medicine Pulmonary Disease; Nurse Practitioner; Nurse Practitioner Family; Pediatrics; ADMIT Hospitalist; ATTEND Hospitalist
DX: S82.231A Displaced oblique fracture of shaft of right tibia, initial encounter for closed fracture (principal); J96.22 Acute and chronic respiratory failure with hypercapnia; J18.9 Pneumonia, unspecified organism; J96.21 Acute and chronic respiratory failure with hypoxia; S22.42XA Multiple fractures of ribs, left side, initial encounter for closed fracture; E87.3 Alkalosis; J44.1 Chronic obstructive pulmonary disease with (acute) exacerbation; J44.0 Chronic obstructive pulmonary disease with (acute) lower respiratory infection; S82.831A Other fracture of upper and lower end of right fibula, initial encounter for closed fracture; M54.9 Dorsalgia, unspecified; G89.29 Other chronic pain; G47.33 Obstructive sleep apnea (adult) (pediatric); F17.210 Nicotine dependence, cigarettes, uncomplicated; I48.0 Paroxysmal atrial fibrillation; R53.81 Other malaise; R26.89 Other abnormalities of gait and mobility; W18.39XA Other fall on same level, initial encounter; Z79.01 Long term (current) use of anticoagulants; Z82.49 Family history of ischemic heart disease and other diseases of the circulatory system; Y93.89 Activity, other specified; Y99.8 Other external cause status; Y92.098 Other place in other non-institutional residence as the place of occurrence of the external cause
CPT/HCPCS: 10081